=== PATIENT | male | born 1955 | race Caucasian/White ===

== ENCOUNTER 2016-07-21 | Emergency (ER) | payer SELFPAY ==
[~2016-07-21] VITALS: Ht 162.6 cm; Wt 88.5 kg
--- NOTE | 2016-07-21 00:15 | NUR ---
PT BROUGHT IN BY RESCUE FROM PUBLIC BUS FOR ETOH. PT UPON ARRIVAL SLURRING SPEECH,UNKEMPT AND SMELLS OF ETOH. PT WITH NO DISTRESS NOTED. ABLE TO FOLLOW COMMANDS. PLACED IN ROOM 2B
--- NOTE | 2016-07-21 01:45 | NUR ---
PT ABLE TO AMBULATE WITH STEADY GAIT TO BATHROOM. A/OX2. PROVIDED COMFORT AND SAFETY MEASURES
--- NOTE | 2016-07-21 05:20 | NUR ---
PT TOLERATE MEAL WITH NO DISTESS NOTED. AMBULATING WITH STEADY GAIT
--- NOTE | 2016-07-21 06:04 | NUR ---
Patient discharged in stable conditon. Written and verbal after care instructions given. Patient verbalizes understanding of instructions. WALKED OUT OF ER WITH NO DISTRESS NOTED
[2016-07-21 06:06] VITALS: BP 133/79
== END 2016-07-21 06:06 | disposition home or self-care (01) ==
LOC: ER 00:05
DX: F10.129 Alcohol abuse with intoxication, unspecified (principal); E11.9 Type 2 diabetes mellitus without complications; F17.200 Nicotine dependence, unspecified, uncomplicated; F19.10 Other psychoactive substance abuse, uncomplicated
CPT/HCPCS: A4663

== ENCOUNTER 2016-11-23 12:32 | Emergency (ER) | payer MEDICAID ==
[~2016-11-23] VITALS: Ht 162.6 cm; Wt 86.2 kg
--- NOTE | 2016-11-23 13:05 | NUR ---
Dr Alicia at the bedside for eval and exam.
--- NOTE | 2016-11-23 13:22 | NUR ---
Lunch provided, pt sitting in chair eating. No c/o pain.
--- NOTE | 2016-11-23 14:15 | NUR ---
Patient is resting comfortably in bed with eyes closed
--- NOTE | 2016-11-23 14:32 | NUR ---
Patient eloped from facility. ER physician notified.
== END 2016-11-23 14:35 | disposition left against medical advice (07) ==
LOC: ER 12:35
DX: F10.10 Alcohol abuse, uncomplicated (principal); R51 Headache; I10 Essential (primary) hypertension; F17.200 Nicotine dependence, unspecified, uncomplicated
CPT/HCPCS: 70450; A4663

== ENCOUNTER 2016-11-27 21:44 | Emergency (ER) | payer MEDICAID ==
[~2016-11-27] VITALS: Ht 162.6 cm; Wt 86.2 kg
--- NOTE | 2016-11-28 00:30 | NUR ---
PT SLEEPING, IN NO APPARENT DISTRESS. PULSE OXIMETER IN PLACE. HEAD CT RESULTS IN PTS CHART. NO ACUTE CHANGES.
[2016-11-28 06:09] VITALS: BP 130/74
--- NOTE | 2016-11-28 06:10 | NUR ---
PT AMBULATED IN DEPT X2 PRIOR TO D/C. PT ABLE TO AMBULATE STEADILY AND INDEP OUT OF DEPT. PT SPEAKING IN FULL SENTENCES.
== END 2016-11-28 06:12 | disposition home or self-care (01) ==
LOC: ER 21:45
DX: R51 Headache (principal); F10.129 Alcohol abuse with intoxication, unspecified; E11.9 Type 2 diabetes mellitus without complications; F17.200 Nicotine dependence, unspecified, uncomplicated
CPT/HCPCS: 70450; A4663